=== PATIENT | male | born 1970 | race Caucasian/White ===

== ENCOUNTER 2021-06-03 08:39 | Outpatient (CLI) | payer MEDICARE, OTHER, SELFPAY ==
--- NOTE | 2021-06-03 | CT_ITS ---
WS: [id number] CT CERVICAL SPINE HISTORY: CERVICAL SPONDYLOSIS TECHNIQUE: Contiguous 2.5 mm axial imaging performed through the entire cervical spine. Sagittal and coronal reformats also performed. All CT scans at [facility] use at least one of these dose o ptimization techniques: automated exposure control; mA and/or kV adjustment per patient size (include s targeted exams where dose is matched to clinical indication); or iterative reconstruction. DLP: 813.17 mGy-cm. COMPARISON: None available. Mild straightening and reversal normal cervical lordosis. Mild disc space narrowing at C5-6 and C6-7 with the greatest osteophyte burden at C6-7. Facet joints are normally aligned. Craniocervical juncti on is normal. Lateral masses of C1 and C2 are aligned. Odontoid is intact. C2-C3: Small disc osteophytes centrally without encroachment or stenosis. C3-C4: Small central disc protrusion without significant stenosis. Mild bilateral facet arthritis. Ve ry minimal LEFT foraminal narrowing. C4-C5: Mild osteophytic ridging is asymmetric to the RIGHT. Mild to moderate RIGHT foraminal stenosis due to facet and vertebral body osteophytes. There is also very small central disc protrusion. C5-C6: Osteophytic ridging with small osteophytes encroaching upon the ventral thecal sac. No high-gr michael stenosis. C6-C7: Mild osteophytic ridging. Mild facet arthritis. C7-T1: Normal. Soft tissues are normal. Lung apices are clear. CT/CT cervical spin wo con* [id number] IMPRESSION: 1. Mild cervical spondylosis. 2. Mild LEFT foraminal narrowing at C3-4. 3. Mild to moderate RIGHT foraminal stenosis at C4-5 due to facet and osteophy te disease. 4. Mild osteophytic ridging encroaching upon the ventral thecal sac at C5-6 wi thout significant stenosis.
== END 2021-06-03 08:40 | disposition home or self-care (01) ==
LOC: RAD 08:42
PROVIDERS: Visit Provider General Practice
DX: M47.22 Other spondylosis with radiculopathy, cervical region (principal); M48.02 Spinal stenosis, cervical region; M25.78 Osteophyte, vertebrae
CPT/HCPCS: 72125